=== PATIENT | male | born 1965 | race Caucasian/White ===

== ENCOUNTER → 2017-07-06 08:03 | Outpatient (CLI) | payer BC, SELFPAY ==
--- NOTE | 2017-07-06 | AS_ITS ---
Renal Arterial Duplex IMPRESSIONS 1. Greater than 60% stenosis involvingone of theright renal arteries. The second right renal artery is within normal limits. No evidence of renal artery stenosis at the left renal artery. Consider CTA of renals for confirmation 2. The left renal artery appears normal. Complete renal arterial duplex. Duplex scan and Doppler flow study including spectral analysis, color and smith scale imaging. Height: Height: 167.6cm. Height: 66in. Weight: Weight: 99.8kg. Weight: 219.5lb. Body mass index: BMI: 35.5kg/m^2. Body surface area: BSA: 2.2m^2. Location: Vascular laboratory. Patient status: Outpatient. Tables: Arterial flow: + +--------+--------+ Location V sys V ed + +--------+--------+ Right renal - proximal 287cm/s 83.9cm/s + +--------+--------+ Right renal - mid 98.8cm/s 38.4cm/s + +--------+--------+ Right renal - distal 112cm/s 42.8cm/s + +--------+--------+ Left renal - proximal 162cm/s 57.2cm/s + +--------+--------+ Left renal - mid 130cm/s -------- + +--------+--------+ Left renal - distal 92cm/s 31.9cm/s + +--------+--------+ Right renal - Origin 1 230cm/s 68cm/s + +--------+--------+ Right renal - Proximal 2 130cm/s -------- + +--------+--------+ Aorta - mid 76cm/s 17cm/s + +--------+--------+ Artery mapping: + +--------+ Location Diameter + +--------+ Abdominal aorta - mid 1.4mm + +--------+ Renal anatomy: + +------+------+ Left Right + +------+------+ Long axis 11.8cm 12.3cm + +------+------+ Short axis 5.3cm 5.5cm + +------+------+ Velocity ratios: + +-----+ V sys + +-----+ Right renal/aortic 3.8 + +-----+ Left renal/aortic 2.3 + +-----+ (Report amended ) Electronically signed by: Urban Biggs [id number]
--- NOTE | 2017-07-06 08:56 | US_ITS ---
US abdomen complete HISTORY: Decreased renal function, no appetite ITS.REASON: ACUTE RENAL FAILURE ORDERING PHYSICIAN: Joy Carmichael PATIENT AGE: 51 years COMPARISON: None FINDINGS: PANCREAS:Unremarkable. No obvious mass or abnormal fluid collection. No ductal dilatation LIVER:Increased echogenicity of the liver consistent with fatty liver. No focal liver lesion, or biliary dilatation. There is appropriate direction of blood flow within the nondilated portal vein. RIGHT KIDNEY:There is mild cortical thinning. No hydronephrosis LEFT KIDNEY:Mild cortical thinning. No hydronephrosis GALLBLADDER:Gallbladder is contracted with mildly thickened wall which may be due to the contracted state. No stones are evident. Common bile duct is normal at 3 mm. AORTA:No evidence of aneurysmal dilatation. SPLEEN:Unremarkable. Normal size and echogenicity ASCITES:None demonstrated. IMPRESSION: Contracted gallbladder with mildly thickened wall. No stones apparent Fatty liver Mild cortical thinning of both kidneys without hydronephrosis
== END ==
PROVIDERS: PCP Nurse Practitioner Family; Visit Provider Nurse Practitioner Family
DX: N17.9 Acute kidney failure, unspecified (principal)
CPT/HCPCS: 76700; 93976

== ENCOUNTER → 2017-07-20 14:36 | Outpatient (POV) | payer BC, SELFPAY ==
[2017-07-20 15:13] LABS: Microscopic, Urine URINE MICROSCOPIC (MICROSCOPIC)
[2017-07-20 15:38] LABS: Basophils # 0.1 K/mm3 (0-0.2); Basophils % 0.6 % (0.1-2.0); Eosinophils # 0.3 K/mm3 (0.0-0.4); Eosinophils % 2.6 % (0.1-12.0); Hematocrit 42.6 % (42.0-52.0); Hemoglobin 13.5 g/dL (14.1-18.0); Lymphocytes # 2.8 K/mm3 (0.7-4.5); Lymphocytes % 21.9 K/mm3 (10-50); Mean Corpuscular HGB Conc 31.8 g/dL (31.8-35.4); Mean Corpuscular Hemoglobin 31.4 pg (27.0-31.2); Mean Corpuscular Volume 98.6 fl (80-94); Mean Platelet Volume 7.8 fl (7.4-10.4); Monocytes # 0.7 K/mm3 (0.1-1.0); Monocytes % 5.7 % (1.7-9.3); Neutrophils # 8.8 K/mm3 (1.8-7.8); Neutrophils % 69.3 % (37.0-80.0); Platelet Count 290 K/mm3 (142-424); Red Blood Count 4.31 M/mm3 (4.60-6.20); Red Cell Distribution Width 14.4 % (11.5-17.5); White Blood Count 12.7 K/mm3 (4.8-10.8)
[2017-07-20 17:31] LABS: Albumin Level 4.1 gm/dL (3.4-5.0); Anion Gap 16.6 mEq/L (5-15); Blood Urea Nitrogen 28 mg/dL (7-18); Calcium 9.8 mg/dL (8.5-10.1); Carbon Dioxide 26 mmol/L (21.0-32.0); Chloride 103 mmol/L (98-107); Creatinine,Serum 1.52 mg/dL (0.70-1.30); Estimated Glomerular Filt Rate 48 ml/min (>60); GFR (African American) 59 ML/MIN (>60); Glucose 134 mg/dL (74-106); Phosphorous 3.4 mg/dL (2.4-4.9); Potassium 4.6 mmoL/L (3.5-5.1); Sodium 141 mmol/L (136-145)
[2017-07-20 18:08] LABS: Creatinine,Urine Random 179 mg/dL (20-320); Total Protein,Urine Random 15.2 mg/dL (0.0-11.9)
[2017-07-20 18:21] LABS: Appearance,Urine CLEAR (Clear); Bilirubin,Urine Negative (Negative); Blood, Urine Negative (Negative); Color,Urine YELLOW (Yellow); Glucose,Urine (UA) Negative (Negative); Ketones,Urine Negative (Negative); Leukocyte Esterase,Urine Negative (Negative); Nitrate,Urine Negative (Negative); PH,Urine 5.5 (5.0-8.5); Protein,Urine Negative (Negative); Specific Gravity, Urine 1.025 (1.005-1.030); Urobilinogen,Urine 0.2 EU/dl (0.2)
[2017-07-20 18:22] LABS: Bacteria,Urine Trace /lpf; WBC,Urine Occasional #/hpf (0-3)
[2017-07-22 20:25] LABS: Parathyroid Hormone Intact 18 pg/mL (15-65); Vitamin D 25 Hydroxy 28.9 ng/mL (30.0-100.0)
== END ==
PROVIDERS: Visit Provider Internal Medicine Nephrology
DX: N17.9 Acute kidney failure, unspecified (principal)
CPT/HCPCS: 36415; 80069; 81001; 82570; 82652; 83970; 84155; 85025

== ENCOUNTER → 2017-09-18 09:08 | Outpatient (CLI) | payer BC, SELFPAY ==
[2017-09-18 13:48] LABS: Albumin Level 3.5 gm/dL (3.4-5.0); Anion Gap 15.8 mEq/L (5-15); Blood Urea Nitrogen 18 mg/dL (7-18); Calcium 9.1 mg/dL (8.5-10.1); Carbon Dioxide 22 mmol/L (21.0-32.0); Chloride 104 mmol/L (98-107); Creatinine,Serum 1.31 mg/dL (0.70-1.30); Estimated Glomerular Filt Rate 57 ml/min (>60); GFR (African American) 69 ML/MIN (>60); Glucose 272 mg/dL (74-106); Phosphorous 3.7 mg/dL (2.4-4.9); Potassium 3.8 mmoL/L (3.5-5.1); Sodium 138 mmol/L (136-145)
== END ==
PROVIDERS: Visit Provider Internal Medicine Nephrology
DX: N17.9 Acute kidney failure, unspecified (principal)
CPT/HCPCS: 36415; 80069

== ENCOUNTER → 2017-12-18 09:12 | Outpatient (CLI) | payer BC, SELFPAY ==
[2017-12-18 14:44] LABS: Alanine Aminotransferase 61 U/L (12-78); Albumin Level 3.9 gm/dL (3.4-5.0); Alkaline Phosphatase 121 U/L (46-116); Anion Gap 15.1 mEq/L (5-15); Aspartate Amino Transferase 31 U/L (15-37); Bilirubin,Total 0.3 mg/dL (0.2-1.0); Blood Urea Nitrogen 27 mg/dL (7-18); Carbon Dioxide 23 mmol/L (21.0-32.0); Chloride 103 mmol/L (98-107); Creatinine,Serum 1.31 mg/dL (0.70-1.30); Estimated Glomerular Filt Rate 57 ml/min (>60); GFR (African American) 69 ML/MIN (>60); Globulin 3.8 gm/dl (1.3-3.2); Glucose 199 mg/dL (74-106); Potassium 4.1 mmoL/L (3.5-5.1); Sodium 137 mmol/L (136-145); Total Protein,Serum 7.7 gm/dL (6.4-8.2)
== END ==
PROVIDERS: PCP Nurse Practitioner Family; Visit Provider Nurse Practitioner Family
DX: N18.3 Chronic kidney disease, stage 3 (moderate) (principal)
CPT/HCPCS: 36415; 80053

== ENCOUNTER → 2018-04-18 06:28 | Outpatient (CLI) | payer BC, SELFPAY ==
--- NOTE | 2018-04-18 06:32 | NM_ITS ---
History and Indications: Coronary artery disease, hypertension, diabetes, hyperlipidemia, chronic tobacco use, family history, chest pain and fatigue. Procedure: Patient exercised on Freddy protocol 6 metastases, resting heart rate was 73 beats per resting blood pressure 124/69, with exercise maximum heart rate achieved was 1 27 bpm which is equal to 76% of the maximum predicted heart rate and a blood pressure was 147/87. Test was started due to shortness of breath patient denied any complained of chest pain. Patient has adequate exercise capacity achieved 7mets of workload on treadmill, the blood pressure response to exercise was adequate, patient did not achieve the target heart rate. Electrocardiogram: Resting electrocardiogram showed sinus rhythm, with exercise there is less than 1.[address] segment depression noted from the baseline EKG. The EKG portion of the exercise Myoview is nondiagnostic. Cardiac stress and resting SPECT images: Cardiac stress and resting SPECT images were obtained using technetium 99 Myoview 32.7 mCi at stress and 10.4 mCi at rest. Gated SPECT further analysis of segmental wall motion and admission of the ejection fraction also done. Cardiac stress and resting SPECT images show uniform myocardial activity without segmental perfusion abnormality, computer derived ejection fraction is 49% with no regional wall motion abnormality, right ventricle is normal size and contractility. Conclusion: 1. The EKG portion of the exercise Myoview is nondiagnostic as patient did not achieve the target heart rate, patient has adequate exercise capacity achieved 7mets of workload on treadmill, the blood pressure response to exercise was adequate, there was no exercise-induced chest discomfort. Test was started due to shortness of breath. 2. No scintigraphic evidence of reversible ischemia seen at this level of exercise, computer derived ejection fraction is 49% with no regional wall motion abnormality, right ventricle is normal size and contractility.
--- NOTE | 2018-04-18 06:32 | CA_ITS ---
PROCEDURE: 2-D M-mode and color Doppler study INDICATIONS FOR THE TEST: Chest pain COPD Heart Murmur Tobacco SmokingX Palpitations Fatigue Syncope Edema HypertensionXDiabetes MellitusX Rheumatic Fever SOB FIGUEROA Obesity Hyperlipidemia Family History HD Additional History CAD,PRE COLONOSCOPY PATIENT INFORMATION HEIGHT: 66 WEIGHT:210 GENDER: Male B/P:128/91 2-D/M-MODE INTERPRETATION: 2-D MEASUREMENTS OBSERVED VALUES IN CMS Right Ventricular Dimension (RVDd) 2.7 Interventricular Septum (Thickness)(IVsd) .9 Left Ventricular Internal Dimensions(LVIDd) 5.4 Left Ventricular Posterior Wall (Thickness)(LVPWd) .9 Aortic Root 3.3 Aortic Cusp Separation 2.4 Left Atrial Dimensions (LAD) 3.7 2D 1. Left atrium is mildly enlarged, left ventricle is normal size, mild concentric left ventricular hypertrophy, visually estimated ejection fraction 55% with no regional wall motion abnormality. 2. The right atrium and right ventricle are mildly enlarged with normal contractility. 3. The aortic valve is minimally thickened and calcified. 4. The mitral and tricuspid valve leaflets are minimally thickened. 5. The pulmonic valve is poorly visualized. 6. No significant pericardial effusion noted. DOPPLER INTERROGATION: Doppler interrogation of the aortic, mitral and tricuspid valvular presence of trace aortic, mild mitral and tricuspid regurgitation, tricuspid regurgitation jet velocity is inadequate for calculation of the right ventricular systolic pressure, grade 1 diastolic dysfunction seen without tissue Doppler evidence of raised left atrial pressure. CONCLUSION: 1. Mildly enlarged left atrium, normal left ventricular size, mild concentric left ventricular hypertrophy, visually estimated ejection fraction 55% with no regional wall motion abnormality, grade 1 diastolic dysfunction seen without tissue Doppler evidence of raised left atrial pressure. 2. Mildly enlarged right ventricle with normal contractility. 3. Trace aortic, mild mitral and tricuspid regurgitation 4. No significant pericardial effusion noted.
--- NOTE | 2018-04-18 07:21 | HMH.ITSHM ---
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 []GLIMEPIRIDE TRADJENTA HYDROCHLOROTHIAZIDE PLAVIX LISINOPRIL ATORVASTATIN GABAPENTIN NORCO TRAZODONE AMBIEN AMLODIPINE
== END ==
PROVIDERS: PCP Nurse Practitioner Family; Visit Provider Internal Medicine
DX: I25.10 Atherosclerotic heart disease of native coronary artery without angina pectoris (principal); I11.9 Hypertensive heart disease without heart failure; I73.9 Peripheral vascular disease, unspecified; E78.5 Hyperlipidemia, unspecified
CPT/HCPCS: 78452; 93017; 93306; A9502

== ENCOUNTER → 2018-05-16 13:08 | Outpatient (CLI) | payer BC, SELFPAY | PROVIDERS: PCP Nurse Practitioner Family; Visit Provider Urology | DX: Z01.818 Encounter for other preprocedural examination (principal); R07.89 Other chest pain; R06.09 Other forms of dyspnea; R06.83 Snoring; G47.9 Sleep disorder, unspecified; R40.0 Somnolence; G47.33 Obstructive sleep apnea (adult) (pediatric) | CPT/HCPCS: 95806 ==

== ENCOUNTER → 2018-06-13 09:53 | Outpatient (CLI) | payer BC, SELFPAY ==
[2018-06-13 14:21] LABS: Alanine Aminotransferase 92 U/L (12-78); Albumin Level 3.9 gm/dL (3.4-5.0); Albumin/Globulin Ratio 1.1 (1.1-1.8); Alkaline Phosphatase 121 U/L (46-116); Anion Gap 15.3 mEq/L (5-15); Aspartate Amino Transferase 44 U/L (15-37); Bilirubin,Total 0.5 mg/dL (0.2-1.0); Blood Urea Nitrogen 23 mg/dL (7-18); Calcium 9.2 mg/dL (8.5-10.1); Carbon Dioxide 26 mmol/L (21.0-32.0); Chloride 100 mmol/L (98-107); Cholesterol 106 mg/dL (140-200); Creatinine,Serum 1.26 mg/dL (0.70-1.30); Estimated Glomerular Filt Rate 60 ml/min (>60); GFR (African American) 72 ML/MIN (>60); Globulin 3.7 gm/dl (1.3-3.2); Glucose 182 mg/dL (74-106); HDL Cholesterol 21 mg/dL (27-67); LDL Cholesterol 57 mg/dL (0-130); Potassium 4.3 mmoL/L (3.5-5.1); Sodium 137 mmol/L (136-145); Total Protein,Serum 7.6 gm/dL (6.4-8.2); Triglycerides 139 mg/dL (30-200); VLDL Cholesterol 28 mg/dL (0-40)
== END ==
PROVIDERS: PCP Nurse Practitioner Family; Visit Provider Nurse Practitioner Family
DX: E11.40 Type 2 diabetes mellitus with diabetic neuropathy, unspecified (principal); Z79.84 Long term (current) use of oral hypoglycemic drugs
CPT/HCPCS: 36415; 80053; 80061

== ENCOUNTER → 2019-06-03 08:09 | Outpatient (POV) | payer BC, SELFPAY ==
[2019-06-03 08:31] VITALS: BP 140/60; PULSE 77; RESP 18; TEMP 36.8; O2SAT 98; BMI 32.3
--- NOTE | 2019-06-03 15:34 | HMH.PMCON ---
Assessment and Plan (1) Spinal stenosis, lumbar region with neurogenic claudication Current visit: Yes Status: Chronic Category: Medical Code(s): M48.062 - Spinal stenosis, lumbar region with neurogenic claudication - Assessment and plan all Dx Assessment and Plan for all problems:: We will schedule an L4-L5 lumbar epidurals steroid injection and epidurogram for potential mild procedure if the epidural does not prove beneficial. He is on anticoagulation therapy from Dr. Hall we will get permission for him to come off prior to. Dr. Timmons has reviewed this note and agrees with this plan of care. This note was dictated using voice recognition software and may contain errors or omissions we specifically discussed risk factors for Covid-19 including age, heart or lung disease, diabetes, immunosuppression and travel. We also discussed that NSAIDs may worsen Covid-19 infection symptoms and that they should not be used to treat Covid-19 symptoms. Patient was also informed that corticosteroids in any form oral or injectable will decrease immune response and may increase risk of Covid-[address] Timmons has reviewed this patient's chart and this note and agrees with plan of care. Patient has been instructed to call the office if they have any issues prior to the next appointment. HPI - Data of Consult Consult date: 06/03/19 Requesting Physician: Ragini Hamilton APRN Primary Care Provider: Joy Carmichael - Consult Narrative Reason for consult: Back pain History of present illness: Mr. Mckeon is a 53 year old male who presents today with a complaint of back pain and leg pain when he is walking and standing. Patient finds that he needs to lean forward to get relief from his pain. Patient's tried and failed gabapentin along with other treatments. He does have an MRI showing severe spinal stenosis at the L4-L5 level. Patient and I discussed options including epidural injections epidurograms in the mild procedure. Patient is open to discussing the mild procedure. CC: Ragini Hamilton APRN [facility] History I have reviewed the patient's past medical history: Yes Medical History: Reports:: Coronary Artery Disease, Diabetes Mellitus Type 2, Hypertension Denies:: Cancer, Diabetes Mellitus Type 1, Internal Pacemaker, Lung Disease, MRSA, Seizures *Have you ever received a pneumonia vaccine?: Yes *Have you received a flu vaccine this season?: Yes Other Surgeries: Yes: Cardiac Catheterization, Colonoscopy, Coronary Stent (x4), Other. No: Pacemaker Amputation: No Fractures: No - *Social History Smoking Status: Never smoker Tobacco Type: cigarettes # Packs/Day (cigarettes): 1 Alcohol Intake: never Alcohol Intake Frequency:: other Substance Use Type: denies use *Occupational Status:: other Housing: house Household Members: other *Travel in the last 8 weeks: None Family Hx:: Unable to obtain Review of Systems - Review of Systems ROS General: no recent weight change, no fever, no sleep disturbances Respiratory: no cough, no shortness of air, no recurring pulmonary infections Cardiovascular/Peripheral Vascular: No chest pain, No palpitations, no edema, no shortness of breath. Gastrointestinal: no new onset incontinence, normal bowel movements reported Genitourinary: no new onset incontinence Musculoskeletal: Back pain, leg pain Psychiatric: normal mood/ affect Neurological: Weakness in bilateral lower extremities when walking and standing, [denies new onset balance issues] Meds Home Medications Medication Instructions Recorded Confirmed Type hydrochlorothiazide 12.5 mg capsule 12.5 mg PO QAM 05/03/17 08/15/18 History zolpidem 10 mg tablet 10 mg PO HS PRN 05/03/17 08/15/18 History amlodipine 2.5 mg tablet 2.5 mg PO DAILY tab 05/16/17 08/15/18 History atorvastatin 10 mg tablet 10 mg PO DAILY tab 05/16/17 08/15/18 History clopidogrel 75 mg tablet 75 mg PO DAILY tab 05/16/17 08/15/18 History gli
== END ==
PROVIDERS: PCP Nurse Practitioner Family; Visit Provider Clinical Nurse Specialist Family Health
DX: M48.062 Spinal stenosis, lumbar region with neurogenic claudication (principal)
CPT/HCPCS: 99202

== ENCOUNTER → 2019-06-17 13:45 | Outpatient (CLI) | payer BC, SELFPAY ==
[2019-06-18 16:22] LABS: Covid-19 Nasal PCR Sendout Lex NOT DETECTED
--- NOTE | 2019-06-18 16:36 | PC.NURSE ---
1630 GAURANG SCHNEIDER RN NOTIFIED OF NEGATIVE COVID-19 TEST RESULTS, WILL NOTIFY DR. GUERRERO [id number] PT NOTIFIED OF NEGATIVE COVID-19 TEST RESULTS
== END ==
PROVIDERS: Visit Provider Anesthesiology
DX: Z03.818 Encounter for observation for suspected exposure to other biological agents ruled out (principal)
CPT/HCPCS: U0003

== ENCOUNTER 2019-06-19 11:15 | Day surgery (SDC) | payer BC, SELFPAY ==
[2019-06-19 11:37] VITALS: BP 142/82; PULSE 76; RESP 18; TEMP 37.1; O2SAT 97; BMI 34.7
--- NOTE | 2019-06-19 11:49 | PC.NURSE ---
FSBS 308. Shanelle Rizzo made aware, NNO.
[2019-06-19 12:41] VITALS: BP 132/87; PULSE 85; RESP 18
[2019-06-19 12:42] VITALS: BP 138/89; PULSE 89; RESP 18; O2SAT 98
--- NOTE | 2019-06-19 12:51 | P.PCN_ITS ---
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 MRI does show significant spinal stenosis at L4-L5. We will do a lumbar epidural steroid injection with an epidurogram today to assess his stenosis and see if this will help with his pain symptoms. Procedure Details:: Lumbar epidural steroid injection under fluoroscopy Informed consent was obtained and the risk and benefits of the procedure was explained to the patient. The patient was taken to the procedure room. The patient was placed prone on the procedure table. The patient was prepped and draped in sterile fashion. C-arm fluoroscopy was used to view the lumbar spine. Skin and subcutaneous tissues were anesthetized using lidocaine. I placed an 18-gauge epidural needle and advanced into the L4-L5 interspace using fluoroscopic guidance and [id number] to air. After confirmation of needle placement in the epidural space with dye I injected 2 mL of lidocaine 1.5% with Depo-Medrol 80 mg. Patient tolerated the procedure well with no complications. Plan and Disposition:: We will follow-up with him in 2 weeks. Will reevaluate his symptoms at that time. He can restart his Plavix tomorrow. On the epidurogram he does have significant stenosis at L4-L5 as well as L3-L4. I believe he would benefit from minimally invasive lumbar decompression at L3-L4 and L4-L5 bilaterally. We will also order a new MRI as the previous MRI we found was greater than 1 year old. He will need to be off of his Plavix for 7 days prior to minimally invasive lumbar decompression.
[2019-06-19 12:57] VITALS: BP 134/77; PULSE 66; RESP 20; O2SAT 97
[2019-06-19 14:21] LABS: POC Glucose,Bedside 308 (70-110)
== END 2019-06-19 12:58 | disposition home or self-care (01) ==
LOC: SC.PAINP 11:17
PROVIDERS: PCP Nurse Practitioner Family; Visit Provider Anesthesiology
DX: M51.16 Intervertebral disc disorders with radiculopathy, lumbar region (principal); M48.062 Spinal stenosis, lumbar region with neurogenic claudication
CPT/HCPCS: 62323; 82962; J1040; Q9966

== ENCOUNTER → 2019-11-19 09:29 | Outpatient (CLI) | payer BC, SELFPAY ==
--- NOTE | 2019-11-19 09:35 | XR_ITS ---
PROCEDURE: XR CHEST 2V CLINICAL HISTORY: dyspnea/wheezing COMPARISON: No exams were available for comparison FINDINGS: Mild cardiomegaly without failure. The lungs are clear without infiltrates, suspicious nodules, or pleural effusions. No acute bony abnormalities. IMPRESSION: Mild cardiomegaly otherwise negative Dictated by: Urban Biggs MD 11/19/2019 14:06 Urban Biggs MD in [place] 11/19/2019 14:06
== END ==
PROVIDERS: PCP Nurse Practitioner Family; Visit Provider Nurse Practitioner Family
DX: E78.49 Other hyperlipidemia (principal); I11.9 Hypertensive heart disease without heart failure; I25.10 Atherosclerotic heart disease of native coronary artery without angina pectoris; I73.9 Peripheral vascular disease, unspecified; Z95.5 Presence of coronary angioplasty implant and graft
CPT/HCPCS: 71046

== ENCOUNTER → 2019-12-09 13:05 | Outpatient (CLI) | payer BC, SELFPAY ==
--- NOTE | 2019-12-09 13:05 | CA_ITS ---
APPROVED REPORT EXAM: Comprehensive 2D, Doppler, and color-flow Echocardiogram Elastic Attacher Coverstitch: Teena Addison RDCS Ht: 5 ft 6 in Wt: 224lbs BSA: 2.10 BP: 148/88 mmHg Indications: SOA,CAD,SMOKER,OBESITY 2D Dimensions LVOT 2.06 cm (M/F) 1.5-2.5 M-Mode Dimensions RVDd 3.53 cm (0.9-2.6) LA Diam 3.88 cm (1.9-4.0) LVDd 5.65 cm (3.5-5.7) Ao Diam 3.79 cm (2.0-3.7) LVDs 3.48 cm (3.5-5.7) IVSd 0.89 cm (0.6-1.1) PWd 1.36 cm (0.6-1.1) EF (Teich) 68.00% FS 38.40% EDV (Teich) 156.80 mL ESV (Teich) 50.20 mL LV Diastology E Decel Time 190.00 (160-240 msec) E/A Ratio 0.8 MED E' 6.10 (< 7 cm/sec) E'/MED E' Ratio 10.05 (>14) LAT E' 8.40 (<10 cm/sec) E/LAT E' Ratio 7.30 (>14) Aortic Valve AI PHT 398.00 ms Mitral Valve MV E Max Tay. 61.00 (40-130 cm/s) MV A Velocity 76.00 (40-130 cm/s) E/A Ratio 0.81 MV Decel. Time 190.00 (160-240 ms) MV PHT 56.00 ms Left Ventricle Left atrium is mildly enlarged, left ventricle is normal size, mild concentric left ventricular hypertrophy, visually estimated ejection fraction 55% with no regional wall motion abnormality, grade 1 diastolic dysfunction seen without tissue Doppler evidence of raise left atrial pressure. Right Ventricle Right atrium and right ventricular normal size and contractility. Aortic Valve Aortic valve is minimally thickened and fibrosed, there is no aortic stenosis, there is mild aortic insufficiency. Mitral Valve Mitral valve is grossly normal, there is mild mitral regurgitation. Tricuspid Valve Tricuspid valve is grossly normal, there is mild tricuspid regurgitation. Tricuspid regurgitation jet velocity is inadequate for calculation of the right ventricular systolic pressure. Pulmonic Valve Pulmonic valve is poorly visualized. Great Vessels Aortic root is normal size. Pericardium No significant pericardial effusion noted. Conclusion 1. Mildly enlarged left atrium, normal left ventricular size, mild concentric left ventricular hypertrophy, visually estimated ejection fraction 55% with no regional wall motion abnormality, grade 1 diastolic dysfunction seen without tissue Doppler evidence of raise left atrial pressure. 2. Mild aortic, mild mitral and tricuspid regurgitation. 3. No significant pericardial effusion noted. Electronically signed by : Sudheer Hernández, 12/09/2019 19:13:14
== END ==
PROVIDERS: PCP Nurse Practitioner Family; Visit Provider Nurse Practitioner Family
DX: R06.00 Dyspnea, unspecified (principal); I11.9 Hypertensive heart disease without heart failure; I25.10 Atherosclerotic heart disease of native coronary artery without angina pectoris; I73.9 Peripheral vascular disease, unspecified; E78.49 Other hyperlipidemia; Z95.5 Presence of coronary angioplasty implant and graft
CPT/HCPCS: 93306; 94060; 94726; 94729